=== PATIENT | female | born 1985 | race Caucasian/White ===

== ENCOUNTER 2020-12-01 09:13 | Emergency (ER) | payer OTHER ==
[~2020-12-01] VITALS: Ht 167.6 cm; Wt 61.7 kg
[2020-12-01] MEDS ORDERED: BELLADONNA ALK/PHENOBARBITAL 5 ML UDC ONE (09:46)
[2020-12-01] MEDS ORDERED: LIDOCAINE VISC 2% SOLN 15 ML UDC ONE (09:46)
[2020-12-01] MEDS ORDERED: MAGNESIUM/ALUMINUM/SIMETHICONE 30 ML UDC ONE (09:46)
[2020-12-01] MEDS: DONNATAL/LIDOCAINE/MAALOX 30 ML SUSP PO ONE (09:48)
[2020-12-01] MEDS ORDERED: SODIUM CHLORIDE 0.9% 50ML 50 ML ONE (09:50)
[2020-12-01] MEDS ORDERED: IOPAMIDOL 370 MG/ML 200 ML INFUS..BTL INJ ONE (09:50)
[2020-12-01] MEDS ORDERED: CARAFATE1 GM PO (11:46)
[2020-12-01] MEDS ORDERED: NEXIUM40 MG PO (11:46)
[2020-12-01 11:47] VITALS: BP 103/71
== END 2020-12-01 11:47 | disposition home or self-care (01) ==
LOC: FSED 09:26
DX: R10.13 Epigastric pain (principal); K21.9 Gastro-esophageal reflux disease without esophagitis; F41.9 Anxiety disorder, unspecified
CPT/HCPCS: 71260; 74177; 76705; 80053; 80076; 81003; 81025; 85025; 99284; Q9967